=== PATIENT | male | born 1945 | race Caucasian/White ===

== ENCOUNTER 2020-05-27 12:21 | Inpatient (IN) ==
[2020-05-27] MEDS ORDERED: CIPRO IV 400 MG PREMIX* 400 MG/200 ML IV.SOLN. IV SCH (14:27)
[2020-05-27] MEDS ORDERED: NS 1000 ML 1,000 ML ONE (14:53)
[2020-05-27] MEDS ORDERED: FLAGYL IV PREMIX 500 MG BAG 500 MG/100 ML BAG IV ONE (14:53)
[2020-05-27 14:54] LABS: BASOPHILS # (AUTO) 0.1 X10^3/uL (0.0-0.1); BASOPHILS % (AUTO) 0.7 % (0.2-1.0); EOSINOPHILS # (AUTO) 4.3 x10^3/uL (0.0-0.2); HEMATOCRIT 49.3 % (42.0-54.0); HEMOGLOBIN 16.6 g/dL (13.5-18.0); LYMPHOCYTES # (AUTO) 1.6 X10^3/uL (1.3-2.9); LYMPHOCYTES % (AUTO) 8.1 % (21.0-51.0); MEAN CORPUSCULAR HEMOGLOBIN 31.7 pg (27.0-34.0); MEAN CORPUSCULAR HGB CONC 33.7 g/dL (33.0-35.0); MEAN PLATELET VOLUME 9.2 fL (7.4-11.0); MONOCYTES # (AUTO) 1.1 x10^3/uL (0.3-0.8); MONOCYTES % (AUTO) 5.7 % (0.0-13.0); NEUTROPHILS # (AUTO) 12.4 x10^3/uL (2.2-4.8); NEUTROPHILS % (AUTO) 63.5 % (42.0-75.0); PLATELET COUNT 215 X10^3/uL (150.0-450.0); RED BLOOD COUNT 5.25 X10^6/uL (4.7-6.0); RED CELL DISTRIBUTION WIDTH 13.3 % (11.6-16.5); WHITE BLOOD COUNT 19.5 X10^3/uL (3.6-10.0)
[2020-05-27 15:05] LABS: CALCIUM 9.2 mg/dL (8.5-10.1); CARBON DIOXIDE 25.5 mmol/L (21-32); CREATININE 1.66 mg/dL (0.70-1.30); TOTAL PROTEIN 7.5 g/dL (6.4-8.2)
[2020-05-27 15:11] LABS: BAND NEUTROPHILS % 5 % (0-10)
[2020-05-27 15:12] LABS: PLATELET MORPHOLOGY COMMENT NORMAL (NORMAL)
[2020-05-27] MEDS: FLAGYL IV PREMIX 500 MG BAG 500 MG/100 ML BAG IV SCH ×2 (15:28→20:31)
[2020-05-27] MEDS: NS 1000 ML 1,000 ML IV SCH (15:28)
--- NOTE | 2020-05-27 15:49 | RAD ---
Abdomen series supine upright and chest three viewsIndication: Diarrhea and weaknessFINDINGSThere is no pneumothorax. Heart size is prominent. Patchy left lower lung opacity suspected. No free air or pneumatosis seen. Gas and stool is seen in the colon. No dilated loop of small bowel seen.IMPRESSION1. No high-grade obstruction, free air or pneumatosis convincingly demonstrated.2. Patchy left lower lung opacity could reflect developing pneumonia.Electronically signed by: BHARAT ECHEVERRIA (May 27, 2020 15:48:51)
[2020-05-27 15:54] VITALS: BMI 25.8
[2020-05-27] MEDS ORDERED: DUONEB 0.5 MG/3 MG (3 mL) NEB ONE (19:44)
[2020-05-27] MEDS: PROTONIX INJ 40 MG VIAL IVP SCH (20:30)
[2020-05-27] MEDS: CIPRO IV 400 MG PREMIX* 400 MG/200 ML IV.SOLN. IV SCH (20:30)
[2020-05-27 20:52] LABS: CRYPTOSPORIDIUM PARVUM ANTIGEN NEGATIVE (NEGATIVE); GIARDIA LAMBLIA ANTIGEN NEGATIVE (NEGATIVE)
[2020-05-27] MEDS: DUONEB 0.5 MG/3 MG (3 mL) NEB SCH (21:30)
[2020-05-28] MEDS: FLAGYL IV PREMIX 500 MG BAG 500 MG/100 ML BAG IV SCH (02:39)
[2020-05-28] MEDS: NS 1000 ML 1,000 ML IV SCH ×2 (02:39→18:06)
[2020-05-28 03:09] LABS: BILIRUBIN,URINE NEGATIVE (NEGATIVE); BLOOD/HEMOGLOBIN,URINE NEGATIVE (NEGATIVE); GLUCOSE, URINE NEGATIVE (NEGATIVE); KETONES,URINE NEGATIVE (NEGATIVE); LEUKOCYTE ESTERASE ,URINE 1+ (NEGATIVE); NITRITES,URINE NEGATIVE (NEGATIVE); PROTEIN,URINE NEGATIVE (NEGATIVE); UROBILINOGEN,URINE NORMAL (NORMAL)
[2020-05-28 03:47] LABS: APPEARANCE,URINE CLEAR (CLEAR); BACTERIA,URINE NEGATIVE /HPF (NEGATIVE); COLOR,URINE YELLOW (YELLOW); RBC,URINE NONE SEEN /HPF (0-3); SQUAMOUS EPITHELIAL CELL,UR NEGATIVE /HPF (NEGATIVE)
[2020-05-28 05:20] LABS: BASOPHILS # (AUTO) 0.1 X10^3/uL (0.0-0.1); BASOPHILS % (AUTO) 0.3 % (0.2-1.0); EOSINOPHILS # (AUTO) 5.4 x10^3/uL (0.0-0.2); EOSINOPHILS % (AUTO) 28.8 % (0.9-2.9); HEMATOCRIT 42.7 % (42.0-54.0); LYMPHOCYTES # (AUTO) 2.1 X10^3/uL (1.3-2.9); LYMPHOCYTES % (AUTO) 11.2 % (21.0-51.0); MEAN CORPUSCULAR HEMOGLOBIN 31.1 pg (27.0-34.0); MEAN CORPUSCULAR HGB CONC 32.8 g/dL (33.0-35.0); MEAN CORPUSCULAR VOLUME 94.7 fL (80.0-100.0); MONOCYTES # (AUTO) 1.3 x10^3/uL (0.3-0.8); MONOCYTES % (AUTO) 6.8 % (0.0-13.0); NEUTROPHILS % (AUTO) 52.9 % (42.0-75.0); PLATELET COUNT 201 X10^3/uL (150.0-450.0); RED BLOOD COUNT 4.51 X10^6/uL (4.7-6.0); WHITE BLOOD COUNT 18.9 X10^3/uL (3.6-10.0)
[2020-05-28 05:28] LABS: ALANINE AMINOTRANSFERASE 14 Units/L (12-78); ALBUMIN 2.5 g/dL (3.4-5.0); ALKALINE PHOSPHATASE 53 Units/L (46-116); ASPARTATE AMINO TRANSFERASE 17 Units/L (15-37); BLOOD UREA NITROGEN 23 mg/dL (7-18); CALCIUM 8.3 mg/dL (8.5-10.1); CARBON DIOXIDE 25.3 mmol/L (21-32); CHLORIDE 107 mmol/L (98-107); COR CA(FOR HYPOALB) 9.5 mg/dL (8.5-10.1); CREATININE 1.59 mg/dL (0.70-1.30); SODIUM 140 mmol/L (136-145); TOTAL PROTEIN 6.4 g/dL (6.4-8.2); eGFR NON BLACK RACES 46 (>60)
--- NOTE | 2020-05-28 05:52 | RAD ---
HISTORYShortness of breathSTUDYChest AP [id number]/06/2020FINDINGSThe heart is within normal limits in size. The don are normal. The lung nava are clear. No pleural effusions are identified. Bony thorax is unremarkable.IMPRESSIONNo significant abnormality identifiedElectronically signed by: BLAKE PEREZ (May 28, 2020 05:52:34)
[2020-05-28 06:09] LABS: PLATELET MORPHOLOGY COMMENT NORMAL (NORMAL)
[2020-05-28] MEDS: CIPRO IV 400 MG PREMIX* 400 MG/200 ML IV.SOLN. IV SCH (08:14)
[2020-05-28] MEDS: PROTONIX INJ 40 MG VIAL IVP SCH ×2 (08:14→21:16)
[2020-05-28] MEDS: DUONEB 0.5 MG/3 MG (3 mL) NEB SCH ×4 (08:53→21:20)
[2020-05-28] MEDS: FORTAZ or TAZICEF VIAL INJ 1 G in NS 100 ML IV + SPIKE MINIBAG* 100 ML IV SCH ×3 (12:30→21:16)
[2020-05-28] MEDS ORDERED: LOMOTIL PO PRN (12:42)
--- NOTE | 2020-05-28 13:19 | DR.H&P ---
H&P - History & Physical for Day of: H&P Date: 05/27/20 - Chief Complaint Chief Complaint: ABDOMINAL PAIN, NAUSEA, SEVERE DIARRHEA - History of Present Illness History of Present Illness: IS A 74 YEAR OLD PATIENT OF OURS WHO WAS SEEN IN THE OFFICE YESTERDAY DUE TO COMPLAINTS OF SEVERE DIARRHEA, ABDOMINAL PAIN, AND NAUSEA. SYMPTOMS STARTED APPROXIMATELY 8 DAYS AGO AND HAS PROGRESSIVELY GOTTEN WORSE DESPITE TAKING CIPRO AND FLAGYL BY MOUTH AT HOME. HE REPORTS 510-15 EPISODES OF DIARRHEA AT HOME EVERYDAY. HE STATES, I FEEL LIKE WHATEVER I EAT OR DRINK RUNS RIGHT THROUGH ME. HE REPORTS RECENTLY EATING OYSTERS, BUT THAT WAS THREE DAYS BEFORE SYMPTOMS STARTED. PAIN IS DESCRIBED CRAMPING AND IS CURRENTLY RATED 6/10. HIS PMH INCLUDES: HYPERTENSION, HYPERLIPIDEMIA, HERNIA REPAIR, HAND SURGERY, AND BACK SURGERY. ON ARRIVAL, TALS WERE 98.0-90-20-98%-136/77. LABS WERE OBTAINED. ABNORMAL LAB VALUES INCLUDE THE FOLLOWING: WBC 19.5, BUN 27, CREATININE 1.66, GLUCOSE 129, CRP 36.40, ALBUMIN 3.0. URINALYSIS WAS UNREMARKABLE. STOOL STUDIES WERE OBTAINED. STOOL IS POSITIVE FOR OCCULT BLOOD, BUT NEGATIVE FOR C-DIFF, WBC, OR CAMPY. STOOL CULTURES ARE PENDING. COVID-19 NEGATIVE. BLOOD CULTURES WERE SET UP. AN ABDOMINAL SERIES WAS OBTAINED AND REVEALED: 1. No high-grade obstruction, free air or pneumatosis convincingly demonstrated. 2. Patchy left lower lung opacity could reflect developing pneumonia. HE DENIED DYSPNEA, COUGH, OR RESPIRATORY SYMPTOMS. WE STARTED PATIENT ON NORMAL SALINE AT 80 ML/HR, CIPRO 400MG IV Q12H, FLAGYL 500MG IV Q6H, DUONEBS QID. ON MORNING ROUNDS, LABS WERE REPEATED. WBC HAD ONLY DECREASED TO 18.9. A CHEST XRAY WAS OBTAINED AND REPORTED THAT LUNGS WERE CLEAR. DUE TO LACK OF SIGNIFICANT IMPROVEMENT IN WBC. WE WILL CHANGE HIS IV ANTIBIOTICS TO FORTAZ 1G IV Q8H AND LEVAQUIN 500MG IV DAILY. WE WILL OBTAIN AN ABDOMEN/PELVIS CT WITH CONTRAST. OTHERWISE, WE PLAN TO FOLLOW UP WITH AM LABS AND CONTINUE TO MONITOR. TIME SPENT ON CLINICAL ASSESSMENT, REVIEWING LABS AND IMAGING, DECISION MAKING, AND DOCUMENTATION GREATER THAN 74 MINUTES. - Past Medical History Past Medical History: Dyslipidemia, Hypertension - Past Surgical History Additional Surgical History: HERNIA REPAIR, HAND SURGERY, BACK SURGERY - Family History Family Medical History: Hypertension - Social History Does patient currently use any type of tobacco product: No Have you used tobacco products in the last 12 months: No Does any household member use tobacco: No Alcohol Use: Occasionally Drug Use: None - Medications Home Medications: No Known Allergies [NKA] Allergy (Verified 05/27/20 17:16) CONTINUE taking the following medications ciprofloxacin HCl [Cipro] 500 mg PO BID 05/27/20 [History] metronidazole [Flagyl] 500 mg PO BID 05/27/20 [History] - Review of Systems Constitutional: Weakness Eyes: No Symptoms Reported ENT: No Symptoms Reported Respiratory: No Symptoms Reported Cardiovascular: No Symptoms Reported Gastrointestinal: See HPI, Nausea, Abdominal Pain, Diarrhea Genitourinary: No Symptoms Reported Musculoskeletal: No Symptoms Reported Skin: No Symptoms Reported Neurological: Weakness - Physical Exam Vital Signs: Temperature 98.0 F Pulse Rate [Right Apical] 74 Pulse Rate 80 Respiratory Rate 18 Blood Pressure [Right Arm] 135/66 O2 Sat by Pulse Oximetry 97 Oriented: Normal Eyes: Normal Ear: Normal Nose: Normal Throat: Normal Respiratory: Diminished Throughout Cardiovascular: Normal : Normal Auscultation: Bowel Sounds: Increased Palpation: Normal Tenderness: Diffuse, Moderate Skin: Normal Musculoskeletal: Normal Psychiatric: Normal Mood Description: Calm Affect: Normal Speech Pattern: Clear - Assessment/Plan (1) Abdominal pain Status: Acute Plan: ADMIT, NS AT 80 ML/HR, LEVAQUIN 500MG IV DAILY, FORTAZ 1G IV Q8H, LOMOTIL 1 TAB PO TID PRN, STOOL CULTURE PENDING, OBTAIN ABDOMEN/PELVIS CT WITH CONTRAST (2) Intractable diarrhea Status: Acute (3) Nausea and vomiting Qualifiers: Vomiting type: unspecified Vomiting Intractability: intractable Qualified Code(s): R11.2 - Nausea with vomiting, unspecified Status: Acute - Allergies Allergies/Adverse Reactions: Allergies Allergy/AdvReac Type Severity Reaction Status Date / Time No Known Allergies [NKA] Allergy Verified 05/27/20 17:16
[2020-05-28] MEDS: LEVAQUIN PREMIX IV 500 MG 500 MG/100 ML BAG IV SCH (14:00)
--- NOTE | 2020-05-28 17:00 | CT ---
HISTORY:Abdominal pain, diarrhea, leukocytosisStudy: CT abdomen and pelvis with contrastComparison:NoneTechnique: Multiple axial images of the abdomen and pelvis were obtained with IV contrast. Oral contrast was administered. Dose reduction techniques including Automated Exposure Control (AEC) and adjustment of mA and kV were utilized.FINDINGS:The lung bases are clear. The liver, spleen, pancreas, and adrenal glands are unremarkable in their CT appearance . The gallbladder is unremarkable .No renal calculi or obstructive uropathy.No free intraperitoneal air. Appendix is normal. There is diverticulosis of the distal colon with segmental pericolonic stranding in the distal descending colon compatible with acute diverticulitis. No evidence of abscess or perforation. No ascites.There are degenerative changes of lumbosacral spine. No aortic aneurysm. There is a retro aortic left renal vein. No pathologically enlarged lymph nodes are identified.Prostate gland is mildly enlarged. Normal urinary bladder.IMPRESSION ABDOMEN/PELVIS:1. Mild diverticulitis involving the distal descending colon. No evidence of abscess or perforation.2. Mildly enlarged prostate gland.Electronically signed by: NIKHIL SOUSA (May 28, 2020 17:00:00)
[2020-05-29] MEDS: NS 1000 ML 1,000 ML IV SCH ×4 (01:29→20:48)
[2020-05-29] MEDS: FORTAZ or TAZICEF VIAL INJ 1 G in NS 100 ML IV + SPIKE MINIBAG* 100 ML IV SCH ×3 (05:01→21:00)
--- NOTE | 2020-05-29 05:51 | RAD ---
HISTORYShortness of breathSTUDYChest AP [id number]/07/2020FINDINGSThe heart is within normal limits in size. The don are normal. The lung nava are clear. No pleural effusions are identified. Bony thorax is unremarkable.IMPRESSIONNo significant abnormality identifiedElectronically signed by: BLAKE PEREZ (May 29, 2020 05:50:46)
[2020-05-29 06:27] LABS: BASOPHILS # (AUTO) 0.1 X10^3/uL (0.0-0.1); BASOPHILS % (AUTO) 0.5 % (0.2-1.0); EOSINOPHILS # (AUTO) 4.9 x10^3/uL (0.0-0.2); EOSINOPHILS % (AUTO) 27.1 % (0.9-2.9); HEMOGLOBIN 12.9 g/dL (13.5-18.0); LYMPHOCYTES # (AUTO) 2.1 X10^3/uL (1.3-2.9); LYMPHOCYTES % (AUTO) 11.7 % (21.0-51.0); MEAN CORPUSCULAR HEMOGLOBIN 31.1 pg (27.0-34.0); MEAN CORPUSCULAR HGB CONC 33.1 g/dL (33.0-35.0); MEAN CORPUSCULAR VOLUME 94.1 fL (80.0-100.0); MEAN PLATELET VOLUME 9.1 fL (7.4-11.0); MONOCYTES # (AUTO) 1.1 x10^3/uL (0.3-0.8); MONOCYTES % (AUTO) 6.3 % (0.0-13.0); NEUTROPHILS # (AUTO) 9.8 x10^3/uL (2.2-4.8); NEUTROPHILS % (AUTO) 54.4 % (42.0-75.0); PLATELET COUNT 192 X10^3/uL (150.0-450.0); RED BLOOD COUNT 4.14 X10^6/uL (4.7-6.0); RED CELL DISTRIBUTION WIDTH 12.9 % (11.6-16.5)
[2020-05-29 06:42] LABS: ALBUMIN 2.4 g/dL (3.4-5.0); CALCIUM 8.4 mg/dL (8.5-10.1); CARBON DIOXIDE 25.2 mmol/L (21-32); CHOL/HDL RATIO 3.2 (0.0-5.0); COR CA(FOR HYPOALB) 9.7 mg/dL (8.5-10.1); CREATININE 1.62 mg/dL (0.70-1.30); TOTAL PROTEIN 6.2 g/dL (6.4-8.2)
[2020-05-29 07:06] LABS: PLATELET MORPHOLOGY COMMENT NORMAL (NORMAL)
[2020-05-29] MEDS: DUONEB 0.5 MG/3 MG (3 mL) NEB SCH ×4 (09:20→21:40)
[2020-05-29] MEDS: PROTONIX INJ 40 MG VIAL IVP SCH ×2 (11:52→20:49)
[2020-05-29] MEDS: LEVAQUIN PREMIX IV 500 MG 500 MG/100 ML BAG IV SCH (11:52)
[2020-05-29] MEDS ORDERED: FORTAZ or TAZICEF VIAL INJ ONE (20:15)
[2020-05-29] MEDS ORDERED: NS 100 ML IV + SPIKE MINIBAG* 100 ML IV ONE (20:15)
[2020-05-29] MEDS ORDERED: DIFLUCAN 200 MG IV PREMIX* 200 MG/100 ML BAG IV SCH (21:00)
[2020-05-29] MEDS ORDERED: DIFLUCAN 200 MG IV PREMIX* 200 MG/100 ML BAG IV ONE (21:32)
[2020-05-29] MEDS ORDERED: VSL#3 PO ONE (21:33)
[2020-05-29] MEDS: VSL#3 PO SCH (22:16)
--- NOTE | 2020-05-30 05:12 | RAD ---
HISTORYSOBSTUDYAP [id number]/08/2020FINDINGSContinued normal heart size and contour with clear lungs, symmetrica lly inflated. There is no mediastinal, hilar or pleural abnormality.IMPRESSIONNo interval change; no acute chest findings.Electronically signed by: MUKUND GARAY (May 30, 2020 05:12:11)
[2020-05-30] MEDS: FORTAZ or TAZICEF VIAL INJ 1 G in NS 100 ML IV + SPIKE MINIBAG* 100 ML IV SCH (06:12)
[2020-05-30] MEDS: NS 1000 ML 1,000 ML IV SCH ×2 (06:13→10:45)
[2020-05-30 06:28] LABS: BASOPHILS % (AUTO) 0.3 % (0.2-1.0); EOSINOPHILS # (AUTO) 5.8 x10^3/uL (0.0-0.2); EOSINOPHILS % (AUTO) 36.3 % (0.9-2.9); HEMATOCRIT 37.1 % (42.0-54.0); HEMOGLOBIN 12.5 g/dL (13.5-18.0); LYMPHOCYTES % (AUTO) 12.5 % (21.0-51.0); MEAN CORPUSCULAR HEMOGLOBIN 31.4 pg (27.0-34.0); MEAN CORPUSCULAR HGB CONC 33.8 g/dL (33.0-35.0); MEAN PLATELET VOLUME 9.2 fL (7.4-11.0); MONOCYTES # (AUTO) 1.1 x10^3/uL (0.3-0.8); NEUTROPHILS % (AUTO) 43.9 % (42.0-75.0); PLATELET COUNT 193 X10^3/uL (150.0-450.0); RED BLOOD COUNT 3.99 X10^6/uL (4.7-6.0); RED CELL DISTRIBUTION WIDTH 13.1 % (11.6-16.5)
[2020-05-30 06:34] LABS: ALANINE AMINOTRANSFERASE 16 Units/L (12-78); ALBUMIN 2.3 g/dL (3.4-5.0); ALKALINE PHOSPHATASE 45 Units/L (46-116); ASPARTATE AMINO TRANSFERASE 16 Units/L (15-37); BLOOD UREA NITROGEN 14 mg/dL (7-18); CALCIUM 8.9 mg/dL (8.5-10.1); CARBON DIOXIDE 23.3 mmol/L (21-32); CHLORIDE 110 mmol/L (98-107); COR CA(FOR HYPOALB) 10.3 mg/dL (8.5-10.1); SODIUM 144 mmol/L (136-145); TOTAL PROTEIN 6.1 g/dL (6.4-8.2); eGFR NON BLACK RACES 45 (>60)
[2020-05-30 07:18] LABS: PLATELET MORPHOLOGY COMMENT NORMAL (NORMAL)
[2020-05-30] MEDS: DUONEB 0.5 MG/3 MG (3 mL) NEB SCH ×2 (10:30→15:04)
[2020-05-30] MEDS: LEVAQUIN PREMIX IV 500 MG 500 MG/100 ML BAG IV SCH (10:44)
[2020-05-30] MEDS: VSL#3 PO SCH (10:44)
[2020-05-30] MEDS: PROTONIX INJ 40 MG VIAL IVP SCH (10:44)
[2020-05-30 17:09] VITALS: BP 152/82
[2020-05-30] MEDS ORDERED: DIFLUCAN 200 MG IV PREMIX* 200 MG/100 ML BAG IV SCH (23:00)
== END 2020-05-30 13:54 | disposition home or self-care (01) | DRG 391 ==
LOC: MED/SURG
PROVIDERS: ADMIT Internal Medicine; ATTEND Internal Medicine
DX: R53.1 Weakness; R94.4 Abnormal results of kidney function studies; R19.7 Diarrhea, unspecified; E78.2 Mixed hyperlipidemia; E86.0 Dehydration; R06.02 Shortness of breath; Z20.828 Contact with and (suspected) exposure to other viral communicable diseases; R79.82 Elevated C-reactive protein (CRP); K57.93 Diverticulitis of intestine, part unspecified, without perforation or abscess with bleeding; R55 Syncope and collapse; R10.84 Generalized abdominal pain

== ENCOUNTER 2020-10-04 20:22 | Observation (INO) ==
--- NOTE | 2020-10-04 20:25 | DR.CP ---
HPI Time Seen Time Seen by Provider: 10/04/20 20:24 HPI Comment HPI Comment: 75-year-old gentleman with no significant past medical history presents with chest pain. Patient reports that approximately noon today he has been experiencing intermittent chest pain which he describes as external area pressure-like chest pain, nonradiating constant, questionable exertional component, no relieving factors, associated with diaphoresis. Took 325 mg of aspirin at home prior to arrival. Denies any previous history of similar pain in the past. Patient has no personal history of CAD. Patient has no history of hypertension or type 2 diabetes. Patient denies any shortness of breath, nausea/vomiting, lower extremity edema/pain. No cough or fever/ Reviewed Nurses Notes Review: Yes Source History Provided: Patient Mode of Arrival Mode of Arrival: Ambulatory Timing Pain: Present Now Context PE Risk Factors: denies Recent Trauma/Surgery History of: denies Similar pain in the past, [place], Angina and Angioplasty Severity Severity: Moderate Modifying Factors Worsens: Exertion Impoves: Nothing Associated Signs and Symptoms Associated Signs and Symptoms: Diaphoresis; denies Shortness of Breath, Palpitations, Abdominal Pain, Nausea/Vomiting and Calf Pain/Swelling PMH PMH Past Medical History: Dyslipidemia and Hypertension Past Surgical History: Yes Past Surgical History Comment: hernia repair Family History Family Medical History: Hypertension Social History Type of Tobacco Use: None Alcohol Use: None Do you use any recreational Drugs:: No ROS Review of Systems Constitutional: No Symptoms Reported Eyes: No Symptoms Reported ENTM: No Symptoms Reported Respiratoy: negative Productive Cough, Non-Productive Cough and Short of Breath Cardiovascular: Chest Pain; negative Edema, Palpitations, Syncope and Cyanosis Gastrointestinal/Abdominal: No Symptoms Reported Genitourinary: No Symptoms Reported Neurological: No Symptoms Reported Musculoskeletal: No Symptoms Reported Integumentary: No Symptoms Reported Hematologic/Lymphatic: No Symptoms Reported Endocrine: No Symptoms Reported Psychiatric: No Symptoms Reported All Other Systems: Reviewed and Negative PE Vitals Vitals: Temperature 37.0 C Pulse Rate [Right] 90 Pulse Rate 92 Respiratory Rate 18 Blood Pressure [Right Arm] 145/77 Blood Pressure 130/76 O2 Sat by Pulse Oximetry 92 General Limitations: No Limitations General Appearance: Alert, Anxious and In Distress (mild pain distress) Head Head Exam: Normal Inspection Eyes Eye exam: Normal Appearance ENT ENT Exam: Normal Exam Chest Chest Inspection: Normal Inspection Respiratory Respiratory Exam: Normal Lung Sounds Bilat Cardiovascular Cardiovascular Exam: Regular Rate and Normal Rhythm Pulse: Normal Edema: Normal Abdominal Exam Abdominal Exam: Normal Inspection, Normal Bowel Sounds and Soft Extremities Extremities Exam: Normal Inspection Back Back Exam: Normal Inspection Neurologic Neurological Exam: Alert and Oriented X3 Psychiatric Psychiatric Exam: Normal Affect and Normal Mood Skin Skin Exam: Warm, Dry, Intact and Normal Color MDM Differential Diagnosis Differential Diagnosis: Angina, Aortic Dissection, Chest Wall Pain, CHF, Myocardial Infarction, Pneumothorax and Pulmonary Embolus COURSE Treatment Treatment: This is a 75-year-old gentleman with no previous history of CAD who presents with acute onset chest pain. Exertional component. EKG on arrival demonstrates some nonspecific T wave inversions in the anteroseptal leads. Unchanged upon serial EKG evaluation. TNI negative. Chest pain markedly improved after nitroglycerin sublingual x2. 325 mg aspirin on board that patient took prior to arrival to ED. Will admit to hospital for serial enzymes for further cardiac evaluation. May require eventual stress test and cardiology evaluation. Will start patient on Lipitor and continue aspirin as an inpatient. Patient was some mild CKD per review of previous records with elevated creatinine of 1.66. Potassium within normal limits. Discussed all details of case with hospitalist on-call Dr. Saucedo who agrees to admit. Education/Counseling Education/Counseling: Patient Educated On: Treatment, Diagnosis, Prognosis and Needs for Follow Up ROR Labs Reviewed Laboratory Results Reviewed?: Yes Result Diagrams: 10/04/20 20:39 10/04/20 20:39 Laboratory: WBC 12.4 X10^3/uL (3.6-10.0) H 10/04/20 20:39 RBC 4.62 X10^6/uL (4.7-6.0) L 10/04/20 20:39 Hgb 14.3 g/dL (13.5-18.0) 10/04/20 20:39 Hct 42.1 % (42.0-54.0) 10/04/20 20:39 MCV 91.0 fL (80.0-100.0) 10/04/20 20:39 MCH 30.9 pg (27.0-34.0) 10/04/20 20:39 MCHC 34.0 g/dL (33.0-35.0) 10/04/20 20:39 RDW 12.8 % (11.6-16.5) 10/04/20 20:39 Plt Count 201 X10^3/uL (150.0-450.0) 10/04/20 20:39 Plt Count Comment Adequate (ADEQUATE) 10/04/20 20:39 MPV 8.1 fL (7.4-11.0) 10/04/20 20:39 Neut % (Auto) 72.4 % (42.0-75.0) 10/04/20 20:39 Lymph % (Auto) 13.1 % (21.0-51.0) L 10/04/20 20:39 [place] % (Auto) 8.9 % (0.0-13.0) 10/04/20 20:39 Eos % (Auto) 2.6 % (0.9-2.9) 10/04/20 20:39 Baso % (Auto) 3.0 % (0.2-1.0) H 10/04/20 20:39 Neut # (Auto) 9.0 x10^3/uL (2.2-4.8) H 10/04/20 20:39 Lymph # (Auto) 1.6 X10^3/uL (1.3-2.9) 10/04/20 20:39 [place] # (Auto) 1.1 x10^3/uL (0.3-0.8) H 10/04/20 20:39 Eos # (Auto) 0.3 x10^3/uL (0.0-0.2) H 10/04/20 20:39 Baso # (Auto) 0.4 X10^3/uL (0.0-0.1) H 10/04/20 20:39 Absolute Nucleated RBC 0.0 /100WBC 10/04/20 20:39 Total Counted 100 10/04/20 20:39 Neutrophils % (Manual) 67 % (39-76) 10/04/20 20:39 Band Neutrophils % 1 % (0-10) 10/04/20 20:39 Lymphocytes % (Manual) 20 % (13-43) 10/04/20 20:39 Monocytes % (Manual) 9 % (4-9) 10/04/20 20:39 Eosinophils % (Manual) 3 % (0-6) 10/04/20 20:39 Plt Morphology Comment Normal (NORMAL) 10/04/20 20:39 RBC Morphology Normal (NORMAL) 10/04/20 20:39 PT 12.3 SECONDS (11.8-14.3) 10/04/20 20:39 INR Target Range - 10/04/20 20:39 INR 0.94 (0.8-1.3) 10/04/20 20:39 APTT 26.7 SECONDS (22.9-36.5) 10/04/20 20:39 PTT Comment - 10/04/20 20:39 D-Dimer 0.34 ug/ml (0.0-0.57) 10/04/20 20:39 Sodium 139 mmol/L (136-145) 10/04/20 20:39 Corrected Sodium TNP 10/04/20 20:39 Potassium 4.2 mmol/L (3.5-5.1) 10/04/20 20:39 Chloride 103 mmol/L (98-107) 10/04/20 20:39 Carbon Dioxide 29.7 mmol/L (21-32) 10/04/20 20:39 BUN 21 mg/dL (7-18) H 10/04/20 20:39 Creatinine 1.66 mg/dL (0.70-1.30) H 10/04/20 20:39 Est GFR (MDRD) Af Amer 52 (>60) L 10/04/20 20:39 Est GFR (MDRD) Non-Af 43 (>60) L 10/04/20 20:39 Glucose 100 mg/dL (65-99) H 10/04/20 20:39 Calcium 9.5 mg/dL (8.5-10.1) 10/04/20 20:39 Troponin I < 0.02 ng/mL (0-1.5) 10/04/20 20:39 XRAY XRAY Interpreted by: Radiologist X-ray Results: cxr 1 view: normal cxr, no infiltrate, no hemo/pneumothorax Opioid Opioid Risk Tool Age (Sg box if 16-45): No History of Preadolescent Sexual Abuse: No Total: 0 Total Score Risk Category: Low Risk Copyright: Rui CUMMINS predicting aberrant behaviors Diagnosis Discharge Problem: Chest pain Qualifiers: Chest pain type: unspecified Qualified Code(s): R07.9 - Chest pain, unspecified Instructions Forms: Patient Portal Social Distancing
[2020-10-04] MEDS ORDERED: NITROSTAT SL ONE (20:28)
--- NOTE | 2020-10-04 20:44 | RAD ---
EXAM: CHEST X-RAYHISTORY: Chest pain. Hernia.TECHNIQUE: AP chest x-ray dated October 04, 2020 at 8:27 PM.COMPARISON: CXR dated May 30, 2020FINDINGS:The heart size and mediastinum are within normal limits. The lung nava and costophrenic angles are clear. There is no acute parenchymal infiltrate, pleural effusion, or pneumothorax seen. The visualized bony structures are within normal limits.IMPRESSION:1. No evidence for acute cardiopulmonary disease seen.2. No significant interval change from the previous exam.Electronically signed by: Tor Ruiz (Oct 04, 2020 20:43:06)
[2020-10-04 20:49] LABS: BASOPHILS # (AUTO) 0.4 X10^3/uL (0.0-0.1); EOSINOPHILS # (AUTO) 0.3 x10^3/uL (0.0-0.2); EOSINOPHILS % (AUTO) 2.6 % (0.9-2.9); HEMATOCRIT 42.1 % (42.0-54.0); HEMOGLOBIN 14.3 g/dL (13.5-18.0); LYMPHOCYTES # (AUTO) 1.6 X10^3/uL (1.3-2.9); LYMPHOCYTES % (AUTO) 13.1 % (21.0-51.0); MEAN CORPUSCULAR HEMOGLOBIN 30.9 pg (27.0-34.0); MEAN PLATELET VOLUME 8.1 fL (7.4-11.0); MONOCYTES # (AUTO) 1.1 x10^3/uL (0.3-0.8); MONOCYTES % (AUTO) 8.9 % (0.0-13.0); NEUTROPHILS % (AUTO) 72.4 % (42.0-75.0); PLATELET COUNT 201 X10^3/uL (150.0-450.0); RED BLOOD COUNT 4.62 X10^6/uL (4.7-6.0); RED CELL DISTRIBUTION WIDTH 12.8 % (11.6-16.5); WHITE BLOOD COUNT 12.4 X10^3/uL (3.6-10.0)
[2020-10-04 21:00] LABS: BLOOD UREA NITROGEN 21 mg/dL (7-18); CALCIUM 9.5 mg/dL (8.5-10.1); CARBON DIOXIDE 29.7 mmol/L (21-32); CHLORIDE 103 mmol/L (98-107); CREATININE 1.66 mg/dL (0.70-1.30); SODIUM 139 mmol/L (136-145); TROPONIN I < 0.02 ng/mL (0-1.5); eGFR NON BLACK RACES 43 (>60)
[2020-10-04 21:07] LABS: BAND NEUTROPHILS % 1 % (0-10); PLATELET MORPHOLOGY COMMENT NORMAL (NORMAL)
[2020-10-04] MEDS ORDERED: LIPITOR TAB 80 MG ONE (22:08)
[2020-10-04] MEDS ORDERED: NS 1000 ML 1,000 ML ONE (22:08)
[2020-10-04] MEDS: LIPITOR TAB 40 MG PO SCH (22:20)
[2020-10-04] MEDS: NS 1000 ML 1,000 ML IV SCH (22:21)
[2020-10-05 01:47] VITALS: BMI 27.7
[2020-10-05 03:15] LABS: CKMB % 1.8 % (<4); CREATINE KINASE 56 Units/L (39-308); CREATINE KINASE MB < 1.0 ng/mL (0-4.0); TROPONIN I < 0.02 ng/mL (0-1.5)
[2020-10-05] MEDS: NS 1000 ML 1,000 ML IV SCH (06:31)
[2020-10-05 08:20] VITALS: BP 134/69
[2020-10-05] MEDS ORDERED: ASPIRIN ONE (08:53)
[2020-10-05] MEDS ORDERED: LIPITOR TAB 80 MG ONE (08:53)
[2020-10-05] MEDS: LIPITOR TAB 40 MG PO SCH (08:56)
[2020-10-05] MEDS ORDERED: ASPIRIN PO SCH (09:00)
[2020-10-05 09:16] LABS: CKMB % 2.2 % (<4); CREATINE KINASE 45 Units/L (39-308); CREATINE KINASE MB < 1.0 ng/mL (0-4.0); TROPONIN I < 0.02 ng/mL (0-1.5)
[2020-10-05] MEDS ORDERED: ECOTRIN TAB 325 MG PO SCH (11:00)
[2020-10-05] MEDS ORDERED: LIPITOR TAB 20 MG PO SCH (11:00)
== END 2020-10-05 13:05 | disposition home or self-care (01) ==
LOC: ER 20:22 → OBS 20:22
PROVIDERS: ADMIT Obstetrics & Gynecology Obstetrics; ATTEND Obstetrics & Gynecology Obstetrics